=== PATIENT | female | born 1990 | race Caucasian/White ===

== ENCOUNTER 2017-04-17 18:08 | Emergency (ER) | payer OTHER ==
[2017-04-17 18:13] VITALS: RESP 18
--- NOTE | 2017-04-17 18:32 | ED ---
General Adult HPI - General Chief complaint: Shortness of Breath Stated complaint: chest,neck,side pain Time Seen by Provider: 04/17/17 18:14 Source: patient Mode of arrival: wheelchair Limitations: no limitations - History of Present Illness Initial comments: 26-year-old female patient percents for evaluation of left rib pain and upper back pain. Patient states that symptoms started last evening after she got up into her truck. She states that the pain has worsened throughout the night and today. She states that the pain is sharp and stabbing. She is currently rating at a time 10 on the pain scale. States it has now encompassed her whole left chest and her left upper back. She states that her hurts to take deep breaths. Hurts to move. She states it hurts to press on the area. She denies any falls, injury, or recent illness. She denies any fever or chills. Patient denies any recent rash, shortness breath, abdominal pain, nausea, vomiting, diarrhea, constipation, numbness, tingling, dizziness, weakness, hematuria, dysuria, urinary urgency, urinary frequency, headache, visual changes, or any other complaints. She states she has had a tubal ligation and is not . - Related Data Home Medications Medication Instructions Recorded Confirmed Naproxen 500 mg PO BID 04/17/17 04/17/17 Previous Rx's Medication Instructions Recorded Ibuprofen [Motrin] 600 mg PO Q8HR PRN #30 tab 04/17/17 Allergies Allergy/AdvReac Type Severity Reaction Status Date / Time metronidazole [From Flagyl] Allergy Rash/Hives Verified 04/17/17 18:24 Review of Systems ROS Statement: Those systems with pertinent positive or pertinent negative responses have been documented in the HPI. ROS Other: All systems not noted in ROS Statement are negative. Past Medical History Past Medical History: No Reported History Additional Past Medical History / Comment(s): heart murmur, umbilical hernia, kidney stones and degenerative disc disease. History of Any Multi-Drug Resistant Organisms: None Reported Past Surgical History: Tubal Ligation Additional Past Surgical History / Comment(s): 09/2014 Past Anesthesia/Blood Transfusion Reactions: No Reported Reaction Past Psychological History: No Psychological Hx Reported Smoking Status: Current every day smoker Past Alcohol Use History: None Reported Past Drug Use History: None Reported General Exam Limitations: no limitations General appearance: alert, anxious, in distress (Moderate), other (Well developed, well-nourished adult female appears to be in moderate distress related to pain. Vital signs upon presentation were temperature 98.1F, pulse 111, respirations 18, blood pressure 124/78, pulse ox 99% on room air.) Eye exam: Present: normal appearance, PERRL, EOMI. Absent: scleral icterus, conjunctival injection, periorbital swelling ENT exam: Present: normal exam, normal oropharynx, mucous membranes moist Neck exam: Present: normal inspection, full ROM. Absent: tenderness, meningismus, lymphadenopathy Respiratory exam: Present: normal lung sounds bilaterally, chest wall tenderness (Over the left anterior lower ribs). Absent: respiratory distress, wheezes, rales, rhonchi, stridor Cardiovascular Exam: Present: normal rhythm, tachycardia, normal heart sounds. Absent: systolic murmur, diastolic murmur, rubs, gallop, clicks GI/Abdominal exam: Present: soft, normal bowel sounds. Absent: distended, tenderness, guarding, rebound, rigid Extremities exam: Present: normal inspection, full ROM, normal capillary refill , other (Strength 5/5.). Absent: tenderness, pedal edema, joint swelling, calf tenderness Back exam: Present: normal inspection Neurological exam: Present: alert, oriented X3, CN II-XII intact Psychiatric exam: Present: normal affect, normal mood Skin exam: Present: warm, dry, intact, normal color. Absent: rash Course Vital Signs 04/17/17 04/17/17 18:11 21:13 Temperature 98.1 F 98.7 F Pulse Rate 111 H 87 Respiratory 18 18 Rate Blood Pressure 124/78 97/62 O2 Sat by Pulse 99 98 Oximetry EKG Findings - EKG Comments: EKG Findings:: EKG obtained at 1851 shows normal sinus rhythm with a ventricular rate of 83, [place] interval 136, QRS duration 84, QT 344, QTC 404. No evidence of ST elevation or depression. Medical Decision Making - Medical Decision Making 26-year-old female patient presented for evaluation of left-sided rib pain and back pain. Patient states it hurts to take a deep breath, hurts to press on the area, and hurts to move at all. Did do a chest x-ray showed no acute cardiopulmonary process. Did inform patient of incidental finding of scoliosis , she states she was not previously aware of this. Lab work was reviewed and showed no abnormalities. D-dimer was negative. Patient states she is not feeling any better. I did inform patient that she most likely has a musculoskeletal abnormality such as costochondritis causing her pain. She was discharged home with a prescription for ibuprofen and instructed to follow-up with her primary care physician for recheck in 1-2 days. Patient became very angry, was verbally abusive toward staff, and stated that she didn't want ibuprofen. She states that she would just get herself some [place]. Did instruct her to return here immediately for any new, worsening, or concerning symptoms. - Lab Data Result diagrams: 04/17/17 19:51 04/17/17 19:51 Lab Results 04/17/17 04/17/17 04/17/17 Range/Units 19:30 19:30 19:51 WBC 9.2 (3.8-10.6) k/uL RBC 4.18 (3.80-5.40) m/uL Hgb 13.2 (11.4-16.0) gm/dL Hct 39.9 (34.0-46.0) % MCV 95.4 (80.0-100.0) fL MCH 31.5 (25.0-35.0) pg MCHC 33.0 (31.0-37.0) g/dL RDW 14.3 (11.5-15.5) % Plt Count 319 (150-450) k/uL Neutrophils % 69 % Lymphocytes % 19 % Monocytes % 7 % Eosinophils % 2 % Basophils % 1 % Neutrophils # 6.4 (1.3-7.7) k/uL Lymphocytes # 1.8 (1.0-4.8) k/uL Monocytes # 0.7 (0-1.0) k/uL Eosinophils # 0.2 (0-0.7) k/uL Basophils # 0.1 (0-0.2) k/uL D-Dimer (<0.60) mg/L FEU Sodium (137-145) mmol/L Potassium (3.5-5.1) mmol/L Chloride (98-107) mmol/L Carbon Dioxide (22-30) mmol/L Anion Gap mmol/L BUN (7-17) mg/dL Creatinine (0.52-1.04) mg/dL Est GFR (MDRD) Af Amer (>60 ml/min/1.73 sqM) Est GFR (MDRD) Non-Af (>60 ml/min/1.73 sqM) Glucose (74-99) mg/dL Calcium (8.4-10.2) mg/dL Total Bilirubin (0.2-1.3) mg/dL AST (14-36) U/L ALT (9-52) U/L Alkaline Phosphatase (38-126) U/L Total Creatine Kinase (30-135) U/L CK-MB (CK-2) (0.0-2.4) ng/mL CK-MB (CK-2) Rel Index Troponin I (0.000-0.034) ng/mL Total Protein (6.3-8.2) g/dL Albumin (3.5-5.0) g/dL Urine Color Yellow Urine Appearance Clear (Clear) Urine pH 7.0 (5.0-8.0) Ur Specific [place] 1.014 (1.001-1.035) Urine Protein Negative (Negative) Urine Glucose (UA) Negative (Negative) Urine Ketones Negative (Negative) Urine Blood Negative (Negative) Urine Nitrite Negative (Negative) Urine Bilirubin Negative (Negative) Urine Urobilinogen <2.0 (<2.0) mg/dL Ur Leukocyte Esterase Negative (Negative) Urine HCG, Qual Not Detected (Not Detectd) Urine Opiates Screen Not Detected (NotDetected) Ur Oxycodone Screen Not Detected (NotDetected) Urine Methadone Screen Not Detected (NotDetected) Ur Propoxyphene Screen Not Detected (NotDetected) Ur Barbiturates Screen Not Detected (NotDetected) U Tricyclic Antidepress Not Detected (NotDetected) Ur Phencyclidine Scrn Not Detected (NotDetected) Ur Amphetamines Screen Not Detected (NotDetected) U Methamphetamines Scrn Not Detected (NotDetected) U Benzodiazepines Scrn Not Detected (NotDetected) Urine Cocaine Screen Not Detected (NotDetected) U Marijuana (THC) Screen Detected H (NotDetected) 04/17/17 04/17/17 04/17/17 Range/Units 19:51 19:51 19:51 WBC (3.8-10.6) k/uL RBC (3.80-5.40) m/uL Hgb (11.4-16.0) gm/dL Hct (34.0-46.0) % MCV (80.0-100.0) fL MCH (25.0-35.0) pg MCHC (31.0-37.0) g/dL RDW (11.5-15.5) % Plt Count (150-450) k/uL Neutrophils % % Lymphocytes % % Monocytes % % Eosinophils % % Basophils % % Neutrophils # (1.3-7.7) k/uL Lymphocytes # (1.0-4.8) k/uL Monocytes # (0-1.0) k/uL Eosinophils # (0-0.7) k/uL Basophils # (0-0.2) k/uL D-Dimer 0.20 (<0.60) mg/L FEU Sodium 138 (137-145) mmol/L Potassium 4.4 (3.5-5.1) mmol/L Chloride 109 H (98-107) mmol/L Carbon Dioxide 21 L (22-30) mmol/L Anion Gap 8 mmol/L BUN 7 (7-17) mg/dL Creatinine 0.70 (0.52-1.04) mg/dL Est GFR (MDRD) Af Amer >60 (>60 ml/min/1.73 sqM) Est GFR (MDRD) Non-Af >60 (>60 ml/min/1.73 sqM) Glucose 85 (74-99) mg/dL Calcium 9.7 (8.4-10.2) mg/dL Total Bilirubin 0.4 (0.2-1.3) mg/dL AST 17 (14-36) U/L ALT 26 (9-52) U/L Alkaline Phosphatase 70 (38-126) U/L Total Creatine Kinase 101 (30-135) U/L CK-MB (CK-2) 0.6 (0.0-2.4) ng/mL CK-MB (CK-2) Rel Index 0.6 Troponin I <0.012 (0.000-0.034) ng/mL Total Protein 6.8 (6.3-8.2) g/dL Albumin 3.9 (3.5-5.0) g/dL Urine Color Urine Appearance (Clear) Urine pH (5.0-8.0) Ur Specific [place] (1.001-1.035) Urine Protein (Negative) Urine Glucose (UA) (Negative) Urine Ketones (Negative) Urine Blood (Negative) Urine Nitrite (Negative) Urine Bilirubin (Negative) Urine Urobilinogen (<2.0) mg/dL Ur Leukocyte Esterase (Negative) Urine HCG, Qual (Not Detectd) Urine Opiates Screen (NotDetected) Ur Oxycodone Screen (NotDetected) Urine Methadone Screen (NotDetected) Ur Propoxyphene Screen (NotDetected) Ur Barbiturates Screen (NotDetected) U Tricyclic Antidepress (NotDetected) Ur Phencyclidine Scrn (NotDetected) Ur Amphetamines Screen (NotDetected) U Methamphetamines Scrn (NotDetected) U Benzodiazepines Scrn (NotDetected) Urine Cocaine Screen (NotDetected) U Marijuana (THC) Screen (NotDetected) - Radiology Data Radiology results: report reviewed, image reviewed Two-view x-ray of the chest shows a heart and mediastinum are normal. Lungs are clear. There is thoracic dextroscoliosis. There is no sign of pleural effusion. Impression by Dr. Perez shows no active cardiopulmonary disease. No change. Disposition Clinical Impression: Costochondritis, Scoliosis Disposition: HOME SELF-CARE Condition: Good Instructions: Costochondritis (ED) Additional Instructions: Take pain medication as directed. Apply warm compresses to the left ribs. Follow-up through primary care physician for recheck in 1-2 days. Return here immediately for any new, worsening, or concerning symptoms. Prescriptions: Ibuprofen [Motrin] 600 mg PO Q8HR PRN #30 tab PRN Reason: Pain Referrals: Nancy Cote MD [Primary Care Provider] - 1-2 days
[2017-04-17] MEDS ORDERED: KETOROLAC 60 MG/2 ML VIAL IM STA (18:49)
--- NOTE | 2017-04-17 19:08 | XR ---
EXAMINATION TYPE: XR chest 2V DATE OF EXAM: 04/17/2017 COMPARISON: 11/08/2010 HISTORY: Back pain TECHNIQUE: Frontal and lateral views of the chest are obtained. FINDINGS: Heart and mediastinum are normal. Lungs are clear. There is thoracic dextroscoliosis. Ther e is no sign of pleural effusion. IMPRESSION: No active cardiopulmonary disease. No change.
[2017-04-17 19:41] LABS: Appearance,Urine Clear (Clear); Bilirubin,Urine Negative (Negative); Glucose,Urine (UA) Negative (Negative); Ketones,Urine Negative (Negative); Leukocyte Esterase,Urine Negative (Negative); Nitrite,Urine Negative (Negative); Protein,Urine Negative (Negative); Specific Gravity,Urine 1.014 (1.001-1.035); UA Billing (MACRO vs. MICRO) CHEM; Urobilinogen,Urine <2.0 mg/dL (<2.0)
[2017-04-17 20:11] LABS: Basophils # (A) 0.1 k/uL (0-0.2); Basophils % (A) 1 %; CH 30.3; CHCM 31.9; Eosinophils # (A) 0.2 k/uL (0-0.7); Eosinophils % (A) 2 %; HCT 39.9 % (34.0-46.0); HDW 2.07; HGB 13.2 gm/dL (11.4-16.0); Luc # (Auto) 0.19; Luc % (Auto) 2; Lymphocytes # (A) 1.8 k/uL (1.0-4.8); Lymphocytes % (A) 19 %; MCH 31.5 pg (25.0-35.0); MCV 95.4 fL (80.0-100.0); Mean Platelet Volume 6.8; Monocytes # (A) 0.7 k/uL (0-1.0); Monocytes % (A) 7 %; Neutrophils # (A) 6.4 k/uL (1.3-7.7); Neutrophils % (A) 69 %; RBC 4.18 m/uL (3.80-5.40); RDW 14.3 % (11.5-15.5); WBC 9.2 k/uL (3.8-10.6); WBC (Perox) 9.44
[2017-04-17 20:26] LABS: ALT 26 U/L (9-52); AST 17 U/L (14-36); Alkaline Phosphatase 70 U/L (38-126); Anion Gap 8 mmol/L; Blood Urea Nitrogen 7 mg/dL (7-17); Calcium 9.7 mg/dL (8.4-10.2); Carbon Dioxide 21 mmol/L (22-30); Chloride 109 mmol/L (98-107); Glucose 85 mg/dL (74-99); Non-African American GFR(MDRD) >60 (>60 ml/min/1.73 sqM); Potassium 4.4 mmol/L (3.5-5.1); Sodium 138 mmol/L (137-145); Total Bilirubin 0.4 mg/dL (0.2-1.3); Total Protein 6.8 g/dL (6.3-8.2)
[2017-04-17 20:41] LABS: Creatine Kinase 101 U/L (30-135)
[2017-04-17 20:53] LABS: Creatine Kinase MB 0.6 ng/mL (0.0-2.4); Troponin I <0.012 ng/mL (0.000-0.034)
[2017-04-17 21:14] VITALS: BP 97/62; PULSE 87; TEMP 98.7
== END 2017-04-17 21:14 | disposition home or self-care (01) ==
LOC: EC 18:08
DX: M94.0 Chondrocostal junction syndrome [Tietze] (principal); M41.9 Scoliosis, unspecified; R06.02 Shortness of breath; F17.200 Nicotine dependence, unspecified, uncomplicated; Z79.1 Long term (current) use of non-steroidal anti-inflammatories (NSAID); Z88.1 Allergy status to other antibiotic agents
CPT/HCPCS: 36415; 93005; 85379; 80053; 82550; 82553; 84484; 85025; 81003; 81025; 80306; 71020; 99285; 96372; J1885

== ENCOUNTER → 2017-10-07 | Outpatient (CLI) | payer OTHER ==
--- NOTE | 2017-10-07 10:15 | XR ---
EXAM TYPE: LUMBAR SPINE X RAY SERIES COMPARISON: NONE HISTORY: Lower back pain TECHNIQUE: 4 views are submitted. FINDINGS: Alignment is anatomic. The pedicles are intact. The transverse processes are intact. There is no s pondylolisthesis. IMPRESSION: 1. No acute process. If symptoms persist consider MRI.
== END | disposition home or self-care (01) ==
LOC: RADXRMAIN 09:58
PROVIDERS: ATTEND Internal Medicine
DX: M54.5 Low back pain (principal)
CPT/HCPCS: 72100

== ENCOUNTER 2017-11-04 08:43 | Day surgery (SDC) | payer OTHER ==
[2017-11-03 11:59] VITALS: BMI 17.3
--- NOTE | 2017-11-03 17:47 | P.GSHP ---
History of Present Illness H&P Date: 11/04/17 CHIEF COMPLAINT: ventral hernia. HISTORY OF PRESENT ILLNESS: The patient is a 27-year-old female who presents with a history of swelling along the umbilicus. Findings were consistent with ventral hernia. Now she presents for further evaluation and management. PAST MEDICAL HISTORY: Please see list. PAST SURGICAL HISTORY: Please see list. MEDICATIONS: Please see list. ALLERGIES: Please see list. SOCIAL HISTORY: No illicit drug use FAMILY HISTORY: No reports of Crohn disease or ulcerative colitis. REVIEW OF ORGAN SYSTEMS: CONSTITUTIONAL: No reports of fevers or chills. GI: Denies any blood in stools or constipation. PHYSICAL EXAM: VITAL SIGNS: Stable GENERAL: Well-developed pleasant female in no acute distress. HEENT: No scleral icterus. Extraocular movements grossly intact. Moist buccal mucosa. NECK: Supple without lymphadenopathy. CHEST: Unlabored respirations. Equal bilateral excursions. CARDIOVASCULAR: Regular rate and rhythm. Distal 2+ pulses. ABDOMEN: Soft, nondistended. Tender along the epigastrium. MUSCULOSKELETAL: No clubbing, cyanosis, or edema. ASSESSMENT: 1. Ventral hernia. 2. Tobacco use. PLAN: 1. Recommend proceeding with robotic ventral hernia repair with mesh. 2. Benefits and risks of surgical intervention was discussed including possibility of open technique. 3. DVT prophylaxis. 4. Antibiotic prophylaxis. 5. Tobacco cessation reiterated. Past Medical History Past Medical History: Osteoarthritis (OA) Additional Past Medical History / Comment(s): heart murmur, umbilical hernia, kidney stones degenerative disc disease,abdominal hernia,irregular blood sugars History of Any Multi-Drug Resistant Organisms: None Reported Past Surgical History: Tubal Ligation Additional Past Surgical History / Comment(s): 09/2014 Past Anesthesia/Blood Transfusion Reactions: No Reported Reaction Additional Past Anesthesia/Blood Transfusion Reaction / Comment(s): mother has hx malignant hyperthermia-. pt states "no problems with prior anesthesia". no hx blood transfusion Smoking Status: Current every day smoker - Past Family History Mother Family Medical History: No Reported History Father Family Medical History: Myocardial Infarction ([place]) Medications and Allergies Home Medications Medication Instructions Recorded Confirmed Type Ibuprofen [Motrin] 600 mg PO Q8HR PRN #30 tab 04/17/17 11/03/17 Rx Naproxen 500 mg PO BID 04/17/17 11/03/17 History Inulin/Chromium Picolinate [Fiber 1 each PO DAILY 11/03/17 11/03/17 History Gummies Chew] Allergies Allergy/AdvReac Type Severity Reaction Status Date / Time metronidazole [From Flagyl] Allergy Rash/Hives Verified 11/03/17 11:44
[~2017-11-04 08:43] MED LIST: DEXAMETHASONE SOD PHOSPHATE 10 MG/ML 1 ML VIAL IV ONE; HEPARIN SODIUM,PORCINE 5,000 UNIT/ML 1 ML VIAL SQ ONE; LACTATED RINGERS 1,000 ML IV SCH; MIDAZOLAM 2 MG/2 ML VIAL IV PRN; ONDANSETRON 4 MG/2 ML VIAL IVP ONE; SCOPOLAMINE 1.5MG/72HR PATCH TRANSDERM ONE; ceFAZolin IN SWFI 2 GM/20 ML SYRINGE IVP ONE
[2017-11-04] MEDS ORDERED: LIDOCAINE 1% 20 ML VIAL (10MG/ML) FOR IV START INTRADERMA ONE (09:27)
[2017-11-04] MEDS ORDERED: MORPHINE SULFATE 10 MG/ML SYRINGE ONE (10:33)
[2017-11-04] MEDS ORDERED: ROCURONIUM BROMIDE 10 MG/ML 10 ML VIAL IV ONE (10:33)
[2017-11-04] MEDS ORDERED: PROPOFOL 10 MG/ML 20 ML VIAL IV ONE (10:33)
[2017-11-04] MEDS ORDERED: MIDAZOLAM 2 MG/2 ML VIAL ONE (10:33)
[2017-11-04] MEDS ORDERED: GLYCOPYRROLATE 0.2 MG/ML 2 ML VIAL ONE (10:33)
[2017-11-04] MEDS ORDERED: LIDOCAINE 1% INJ 10MG/ML (20 ML MDV) ONE (10:33)
[2017-11-04] MEDS ORDERED: fentaNYL (PF) 50 MCG/ML 2 ML AMP ONE (10:33)
[2017-11-04] MEDS ORDERED: NEOSTIGMINE 1 MG/ML 10 ML VIAL ONE (10:33)
[2017-11-04] MEDS ORDERED: BUPIVACAINE (PF) 0.25% 30 ML VIAL SQ ONE (11:12)
[2017-11-04] MEDS ORDERED: LACTATED RINGERS 1,000 ML IV ONE ×2 (11:50→14:16)
--- NOTE | 2017-11-04 12:23 | P.OP ---
Date of Procedure: 11/04/17 Description of Procedure: SURGEON: INGRID FARFAN MD IT ANALYST: 1. BLAINE VALENTINO PREOPERATIVE DIAGNOSES: 1. Incarcerated ventral hernia, epigastrium 2. History of tobacco abuse 3. Heart murmur 4. Family history of malignant hyperthermia 5. Underwent, BMI 17.4 POSTOPERATIVE DIAGNOSES: 1. Incarcerated ventral hernia, epigastrium 2. History of tobacco abuse 3. Heart murmur 4. Family history of malignant hyperthermia 5. Underwent, BMI 17.4 6. Incarcerated ventral hernia, epigastrium, 4 x 3 cm OPERATION: 1. Robotic-assisted da Parmjit Xi laparoscopic repair of initial incarcerated ventral hernia 4 x 3 cm without mesh ANESTHESIA: General with local ESTIMATED BLOOD LOSS: 5 mL. SPECIMENS: Incarcerated ventral hernia sac COMPLICATIONS: None. INDICATIONS: The patient is a 27-year-old female who presents with pain and swelling along the epigastrium. Surgical intervention with laparoscopic versus robotic and open techniques were reviewed. Placement of mesh was also reviewed. Benefits and risks were thoroughly described. Informed consent was obtained. DESCRIPTION OF PROCEDURE: The patient was brought into the operating room and laid in supine position. After general induction, the abdomen had been prepped and draped in standard sterile fashion. Ioban draping was also placed. Prior to incision, a timeout protocol was confirmed with surgical team regarding the patient's name including procedures to be performed. The robot was primed prior to the procedure. A field block using local anesthetic was placed along hernia site including the proposed port sites. Initial incision was made with an #11 blade along the left upper quadrant. A 0 degree 5 mm laparoscopic trocar entry was performed. Diagnostic laparoscopy demonstrated an incarcerated ventral hernia of the epigastrium was identified. A 8 mm trocar was placed along the epigastrium. An 8 mm port was placed along the right upper quadrant under direct localization. The 5-mm port was exchanged for an 8 mm robotic port. Placements of the ports were 10 cm from the target anatomy and approximately 8 cm apart. The [employer] Xi robot was previously primed, prepped and draped then docked along the left side of the patient. I then sat at the robot Da Parmjit Xi console where working arms of the robot including Bovie cautery connected to robotic scissors, vessel sealer, needle dinkey driver, and graspers placed by the autopsy assistant. The incarcerated contents was reduced as the peritoneal fat was cleaned from the abdominal wall. Next, hemostasis was checked with cautery. The hernia defect of 4-cm x 3-cm was oversewn using 2-0 VLOC using imbrication x 3. A final endoscopic imaging was obtained. All instruments and pneumoperitoneum were evacuated from the abdominal cavity. The da Parmjit Xi robot was undocked from the patient. I re-scrubbed into the case for closure of incisions. The incisions were reapproximated using 4-0 Monocryl in an interrupted subcuticular fashion. Liquid glue was applied to the skin after cleansing the skin. At the end of the procedure, needle, sponge, and instrument count had been verified correct by surgical garment inspector. The patient was taken to the postanesthesia care unit in stable condition. An abdominal binder was placed. FINDINGS: 1. Initial ventral incarcerated hernia of the lower abdomen, 4 x 3 cm Plan - Discharge Summary Discharge Rx Participant: No New Discharge Prescriptions: No Action Naproxen 500 mg PO BID Ibuprofen [Motrin] 600 mg PO Q8HR PRN #30 tab PRN Reason: Pain Inulin/Chromium Picolinate [Fiber Gummies Chew] 1 each PO DAILY Discharge Medication List Ibuprofen [Motrin] 600 mg PO Q8HR PRN #30 tab 04/17/17 [Rx] Naproxen 500 mg PO BID 04/17/17 [History] Inulin/Chromium Picolinate [Fiber Gummies Chew] 1 each PO DAILY 11/03/17 [ History]
[2017-11-04] MEDS: fentaNYL (PF) 50 MCG/ML 2 ML AMP IV PRN ×2 (12:27→12:39)
[2017-11-04 12:34] VITALS: TEMP 98
[2017-11-04] MEDS: MEPERIDINE 50 MG/ML SYRINGE IVP ONE ×2 (12:47→12:57)
[2017-11-04] MEDS ORDERED: MIDAZOLAM 2 MG/2 ML VIAL IVP ONE (13:03)
[2017-11-04] MEDS ORDERED: HYDROcodone/APAP 10-325MG 1 EACH TAB PO ONE ×2 (13:53→17:06)
[2017-11-04] MEDS ORDERED: HYDROcodone/APAP 5-325MG 1 EACH TAB PO ONE (14:01)
[2017-11-04] MEDS ORDERED: LORazepam 2 MG/ML INJ IV ONE ×2 (14:02→14:16)
[2017-11-04] MEDS ORDERED: fentaNYL (PF) 50 MCG/ML 2 ML AMP IVP ONE (15:20)
[2017-11-04 15:36] VITALS: RESP 18
--- NOTE | 2017-11-04 15:50 | P.ONQ ---
Anesthesiology Proc Note - PNB - Peripheral Nerve Block Performed Left Transversus Abdominis Single Time Out Performed: Yes Procedure Start Time: 14:59 Procedure Stop Time: 15:10 Indication: Acute Post-Operative Pain, Requested by physician Specifically requested for management of pain by DrMahogany: Suellen Pritchett Sedation Type: Sedate with meaningful contact maintained Preparation: Sterile Prep Position: Supine Needle Size: 50mm (2") (PUJUNK) Needle Gauge: 21 Technique: Ultrasound Injectate: 0.5% Ropivacaine (see comment for volume) (10 ml plus Bupivacaine 0.5 % withep 1/200k 10 ml) Blood Aspirated: No Pain Paresthesia on Injection Noted: No Resistance on Injection: Normal Events: Uneventful and Well Tolerated
--- NOTE | 2017-11-04 15:53 | P.ONQ ---
Anesthesiology Proc Note - PNB - Peripheral Nerve Block Performed Right Transversus Abdominis Single Time Out Performed: Yes Procedure Start Time: 15:12 Procedure Stop Time: 15:20 Indication: Acute Post-Operative Pain Specifically requested for management of pain by Dr.: Suellen Pritchett Sedation Type: Sedate with meaningful contact maintained Preparation: Sterile Prep Position: Supine Needle Size: 50mm (2") (PUJUNK) Needle Gauge: 20 Technique: Ultrasound Injectate: 0.5% Ropivacaine (see comment for volume) (10 ml plus Bupivacaine 0.5 % with epi 1/200 k 10 ml) Blood Aspirated: No Pain Paresthesia on Injection Noted: No Resistance on Injection: Normal Events: Uneventful and Well Tolerated
[2017-11-04 16:28] VITALS: BP 106/65; PULSE 83
[2017-11-04] MEDS ORDERED: KETOROLAC 30 MG/ML 1 ML VIAL IVP STA (16:48)
[2017-11-04] MEDS ORDERED: KETOROLAC 30 MG/ML 1 ML VIAL IVP ONE (16:52)
== END 2017-11-04 17:49 | disposition home or self-care (01) ==
LOC: OR 08:43
PROVIDERS: ATTEND Surgery Plastic and Reconstructive Surgery
DX: K43.6 Other and unspecified ventral hernia with obstruction, without gangrene (principal); R01.1 Cardiac murmur, unspecified; F17.200 Nicotine dependence, unspecified, uncomplicated; Z68.1 Body mass index [BMI] 19.9 or less, adult; Z84.89 Family history of other specified conditions; Z79.1 Long term (current) use of non-steroidal anti-inflammatories (NSAID); Z88.1 Allergy status to other antibiotic agents
CPT/HCPCS: 49653; 64488; S2900; 81025; 84703; 86850; 86900; 86901; 88302

== ENCOUNTER 2017-11-06 13:54 | Emergency (ER) | payer OTHER ==
[2017-11-06] MEDS ORDERED: SODIUM CHLORIDE 0.9% 1,000 ML IV STA (14:40)
[2017-11-06] MEDS ORDERED: RX INFO: IV CONTRAST WAS GIVEN 1 EACH MISC MISCELLANE PRN (14:52)
[2017-11-06] MEDS ORDERED: MORPHINE SULFATE 2 MG/ML SYRINGE IVP ONE (14:52)
[2017-11-06] MEDS ORDERED: ONDANSETRON 4 MG/2 ML VIAL IVP STA (14:52)
[2017-11-06] MEDS ORDERED: MORPHINE SULFATE 4MG/4ML SYRG IVP STA ×2 (14:52→16:17)
[2017-11-06] MEDS ORDERED: MORPHINE SULFATE 4MG/4ML SYRG IVP ONE (14:52)
[2017-11-06] MEDS ORDERED: MORPHINE SULFATE 4MG/4ML SYRG ONE (14:55)
[2017-11-06 15:00] LABS: Basophils % (A) 0 %; Eosinophils # (A) 0.1 k/uL (0-0.7); Eosinophils % (A) 3 %; HCT 39.8 % (34.0-46.0); HGB 12.9 gm/dL (11.4-16.0); Lymphocytes # (A) 2.1 k/uL (1.0-4.8); Lymphocytes % (A) 40 %; MCH 30.3 pg (25.0-35.0); MCHC 32.4 g/dL (31.0-37.0); MCV 93.4 fL (80.0-100.0); Mean Platelet Volume 7.8; Monocytes # (A) 0.4 k/uL (0-1.0); Monocytes % (A) 7 %; Neutrophils # (A) 2.5 k/uL (1.3-7.7); Neutrophils % (A) 48 %; Platelet Count 195 k/uL (150-450); RBC 4.26 m/uL (3.80-5.40); RDW 13.2 % (11.5-15.5); WBC 5.2 k/uL (3.8-10.6)
[2017-11-06 15:07] LABS: Appearance,Urine Clear (Clear); Bilirubin,Urine Negative (Negative); Blood,Urine Moderate (Negative); Color,Urine Light Yellow; Glucose,Urine (UA) Negative (Negative); Ketones,Urine Negative (Negative); Leukocyte Esterase,Urine Negative (Negative); Mucus,Urine Rare /hpf; Nitrite,Urine Negative (Negative); Protein,Urine Negative (Negative); RBC,Urine 1 /hpf (0-5); Specific Gravity,Urine 1.006 (1.001-1.035); Squamous Epithelial Cell,Urine 2 /hpf (0-4); Urobilinogen,Urine <2.0 mg/dL (<2.0); WBC,Urine 1 /hpf (0-5)
[2017-11-06 15:09] LABS: ALT 27 U/L (9-52); AST 29 U/L (14-36); Albumin 4.2 g/dL (3.5-5.0); Alkaline Phosphatase 64 U/L (38-126); Amylase 49 U/L (30-110); Anion Gap 12 mmol/L; Blood Urea Nitrogen 7 mg/dL (7-17); Calcium 9.5 mg/dL (8.4-10.2); Carbon Dioxide 25 mmol/L (22-30); Chloride 106 mmol/L (98-107); Glucose 82 mg/dL (74-99); Lipase 86 U/L (23-300); Potassium 3.5 mmol/L (3.5-5.1); Sodium 143 mmol/L (137-145); Total Bilirubin 0.3 mg/dL (0.2-1.3); Total Protein 7.1 g/dL (6.3-8.2)
--- NOTE | 2017-11-06 15:21 | XR ---
EXAMINATION TYPE: XR KUB DATE OF EXAM: 11/06/2017 CLINICAL DATA: 27-year-old female with abdominal pain, H COMPARISON: 08/19/2015 FINDINGS: Lung bases are clear. No evidence for free intraperitoneal air. No dilated small bowel or air-fluid levels. Scattered air and stool seen throughout the colon extendi ng distally into the rectum. Gassy colon with mild stool burden. No suspicious calcifications identified. IMPRESSION: 1. Gassy colon with mild stool burden. 2.No evidence of bowel obstruction or free intraperitoneal air.
--- NOTE | 2017-11-06 15:47 | ED ---
Abdominal Pain HPI - General Chief Complaint: Abdominal Pain Stated Complaint: post op abd pain - hernia surgery Time Seen by Provider: 11/06/17 14:40 Source: patient, RN notes reviewed Mode of arrival: wheelchair Limitations: no limitations - History of Present Illness Initial Comments: This is 27-year-old female presents emergency department to complaint of abdominal pain. Patient states that she is on day 2. Ventral hernia repair by Dr. Pritchett. Patient states that she was doing well until early this morning which she was woken up by abdominal pain. She states it is sharp intense abdominal pain meds not localized. She states as very dislocations. She states that she has not had a bowel movement since her surgery she states been trying to go but can't. Patient states she did take her pain medication twice with no relief she attempted to call her doctor multiple times which had no phone call back. Patient denies any vomiting. There appears or chills. No dysuria hematuria. - Related Data Home Medications Medication Instructions Recorded Confirmed Naproxen 500 mg PO BID 04/17/17 11/04/17 Inulin/Chromium Picolinate [Fiber 1 each PO DAILY 11/03/17 11/04/17 Gummies Chew] Previous Rx's Medication Instructions Recorded Ibuprofen [Motrin] 600 mg PO Q8HR PRN #30 tab 04/17/17 HYDROcodone/APAP 7.5-325MG [[place] 1 each PO Q4H PRN #30 tab 11/04/17 7.5-325] Bisacodyl [Dulcolax] 5 mg PO DAILY #20 tablet. 11/06/17 Hydrocodone/Acetaminophen [[place] 1 tab PO Q6HR PRN #15 tab 11/06/17 5-325] Allergies Allergy/AdvReac Type Severity Reaction Status Date / Time metronidazole [From Flagyl] Allergy Rash/Hives Verified 11/06/17 14:03 Review of Systems ROS Statement: Those systems with pertinent positive or pertinent negative responses have been documented in the HPI. ROS Other: All systems not noted in ROS Statement are negative. Past Medical History Past Medical History: No Reported History Additional Past Medical History / Comment(s): heart murmur, umbilical hernia, kidney stones and degenerative disc disease. History of Any Multi-Drug Resistant Organisms: None Reported Past Surgical History: Hernia Repair, Tubal Ligation Additional Past Surgical History / Comment(s): 09/2014 Past Anesthesia/Blood Transfusion Reactions: No Reported Reaction Past Psychological History: No Psychological Hx Reported Smoking Status: Current every day smoker Past Alcohol Use History: None Reported Past Drug Use History: None Reported General Exam Limitations: no limitations General appearance: alert, in no apparent distress Head exam: Present: atraumatic, normocephalic, normal inspection Respiratory exam: Present: normal lung sounds bilaterally. Absent: respiratory distress, wheezes, rales, rhonchi, stridor Cardiovascular Exam: Present: regular rate, normal rhythm, normal heart sounds. Absent: systolic murmur, diastolic murmur, rubs, gallop, clicks GI/Abdominal exam: Present: soft, tenderness (Diffuse moderate tenderness), normal bowel sounds, other (3 incisions noted that her close no erythema no drainage). Absent: distended, guarding, rebound, rigid Course Vital Signs 11/06/17 14:01 Temperature 98.3 F Pulse Rate 78 Respiratory 20 Rate Blood Pressure 125/65 O2 Sat by Pulse 100 Oximetry Medical Decision Making - Medical Decision Making 27-year-old female presents from for abdominal pain.. Patient CT shows some free air which is consistent with her surgery. Patient's laboratory unremarkable. Patient's pain most likely related to postop pain. Patient states discussed with on-call surgeon for Dr. Ginny Cook. He advises bowel regimen, pain control. Patient will follow-up tomorrow for recheck. - Lab Data Result diagrams: 11/06/17 14:42 11/06/17 14:42 Lab Results 11/06/17 11/06/17 11/06/17 Range/Units 14:42 14:42 14:42 WBC 5.2 (3.8-10.6) k/uL RBC 4.26 (3.80-5.40) m/uL Hgb 12.9 (11.4-16.0) gm/dL Hct 39.8 (34.0-46.0) % MCV 93.4 (80.0-100.0) fL MCH 30.3 (25.0-35.0) pg MCHC 32.4 (31.0-37.0) g/dL RDW 13.2 (11.5-15.5) % Plt Count 195 (150-450) k/uL Neutrophils % 48 % Lymphocytes % 40 % Monocytes % 7 % Eosinophils % 3 % Basophils % 0 % Neutrophils # 2.5 (1.3-7.7) k/uL Lymphocytes # 2.1 (1.0-4.8) k/uL Monocytes # 0.4 (0-1.0) k/uL Eosinophils # 0.1 (0-0.7) k/uL Basophils # 0.0 (0-0.2) k/uL Sodium 143 (137-145) mmol/L Potassium 3.5 (3.5-5.1) mmol/L Chloride 106 (98-107) mmol/L Carbon Dioxide 25 (22-30) mmol/L Anion Gap 12 mmol/L BUN 7 (7-17) mg/dL Creatinine 0.67 (0.52-1.04) mg/dL Est GFR (CKD-EPI)AfAm >90 (>60 ml/min/1.73 sqM) Est GFR (CKD-EPI)NonAf >90 (>60 ml/min/1.73 sqM) Glucose 82 (74-99) mg/dL Plasma Lactic Acid Gigi 0.8 (0.7-2.0) mmol/L Calcium 9.5 (8.4-10.2) mg/dL Total Bilirubin 0.3 (0.2-1.3) mg/dL AST 29 (14-36) U/L ALT 27 (9-52) U/L Alkaline Phosphatase 64 (38-126) U/L Total Protein 7.1 (6.3-8.2) g/dL Albumin 4.2 (3.5-5.0) g/dL Amylase 49 (30-110) U/L Lipase 86 (23-300) U/L Urine Color Urine Appearance (Clear) Urine pH (5.0-8.0) Ur Specific [place] (1.001-1.035) Urine Protein (Negative) Urine Glucose (UA) (Negative) Urine Ketones (Negative) Urine Blood (Negative) Urine Nitrite (Negative) Urine Bilirubin (Negative) Urine Urobilinogen (<2.0) mg/dL Ur Leukocyte Esterase (Negative) Urine RBC (0-5) /hpf Urine WBC (0-5) /hpf Ur Squamous Epith Cells (0-4) /hpf Urine Mucus (None) /hpf 11/06/17 Range/Units 14:42 WBC (3.8-10.6) k/uL RBC (3.80-5.40) m/uL Hgb (11.4-16.0) gm/dL Hct (34.0-46.0) % MCV (80.0-100.0) fL MCH (25.0-35.0) pg MCHC (31.0-37.0) g/dL RDW (11.5-15.5) % Plt Count (150-450) k/uL Neutrophils % % Lymphocytes % % Monocytes % % Eosinophils % % Basophils % % Neutrophils # (1.3-7.7) k/uL Lymphocytes # (1.0-4.8) k/uL Monocytes # (0-1.0) k/uL Eosinophils # (0-0.7) k/uL Basophils # (0-0.2) k/uL Sodium (137-145) mmol/L Potassium (3.5-5.1) mmol/L Chloride (98-107) mmol/L Carbon Dioxide (22-30) mmol/L Anion Gap mmol/L BUN (7-17) mg/dL Creatinine (0.52-1.04) mg/dL Est GFR (CKD-EPI)AfAm (>60 ml/min/1.73 sqM) Est GFR (CKD-EPI)NonAf (>60 ml/min/1.73 sqM) Glucose (74-99) mg/dL Plasma Lactic Acid Gigi (0.7-2.0) mmol/L Calcium (8.4-10.2) mg/dL Total Bilirubin (0.2-1.3) mg/dL AST (14-36) U/L ALT (9-52) U/L Alkaline Phosphatase (38-126) U/L Total Protein (6.3-8.2) g/dL Albumin (3.5-5.0) g/dL Amylase (30-110) U/L Lipase (23-300) U/L Urine Color Light Yellow Urine Appearance Clear (Clear) Urine pH 6.0 (5.0-8.0) Ur Specific [place] 1.006 (1.001-1.035) Urine Protein Negative (Negative) Urine Glucose (UA) Negative (Negative) Urine Ketones Negative (Negative) Urine Blood Moderate H (Negative) Urine Nitrite Negative (Negative) Urine Bilirubin Negative (Negative) Urine Urobilinogen <2.0 (<2.0) mg/dL Ur Leukocyte Esterase Negative (Negative) Urine RBC 1 (0-5) /hpf Urine WBC 1 (0-5) /hpf Ur Squamous Epith Cells 2 (0-4) /hpf Urine Mucus Rare H (None) /hpf Disposition Clinical Impression: Status post hernia repair, Abdominal pain, Constipation Disposition: HOME SELF-CARE Condition: Stable Instructions: Abdominal Pain (ED) Additional Instructions: Please return to the Emergency Department if symptoms worsen or any other concerns. Prescriptions: Bisacodyl [Dulcolax] 5 mg PO DAILY #20 tablet. Hydrocodone/Acetaminophen [[place] 5-325] 1 tab PO Q6HR PRN #15 tab PRN Reason: Pain Referrals: Nancy Cote MD [Primary Care Provider] - 1-2 days Suellen Pritchett MD [STAFF PHYSICIAN] - 1-2 days Time of Disposition: 16:14
--- NOTE | 2017-11-06 15:54 | CT ---
EXAMINATION TYPE: CT abdomen pelvis w con DATE OF EXAM: 11/06/2017 COMPARISON: 11/03/2010 HISTORY: 27-year-old female Mid to RLQ pain. Post OP Umbilical hernia repair 11/04/17 TECHNIQUE: Contiguous axial scanning of the abdomen and pelvis following administration of 100 ml Omn ipaque 300 IV contrast. Delayed images through the kidneys and coronal/sagittal reconstructions perf ormed. CT DLP: 352.5 mGycm Automated exposure control for dose reduction was used. FINDINGS: Heart is normal size without pericardial effusion. There is combination of subcutaneous air, scattered air along the abdominal wall soft tissues, and at the patient's site of reported umbilical hernia repair. Mild fat stranding in this region suggests s ome inflammation. Tiny residual defect with some traversing air difficult to entirely exclude, refer to sagittal images 49 through 51 and axial image 42. Trace free intraperitoneal air and trace abdominal ascites but with more moderate pelvic ascites. Some heterogeneity to the enhancement along the right hepatic dome may be secondary to the arterial p hase imaging. Portal venous system is patent. No biliary ductal dilatation. Gallbladder, adrenal glands, right kidney, spleen, and pancreas show no gross abnormality. Couple tiny cortical defects lower pole left kidney were present previously and suggests sequela of p rior infection or vascular insult. No dilated small bowel. There is moderate stool burden. No mesenteric or retroperitoneal lymphadenopa thy clearly identified. A short portion of what appears to be the appendix is grossly unremarkable. The appendix is not seen in its entirety. Bladder is urine distended. Very bulky and heterogeneous enhancement to the uterus. Ovaries are not c learly delineated. Again, moderate pelvic free fluid is present. Bones: No osseous destructive process. IMPRESSION: 1. COMBINATION OF MILD SCATTERED SUBCUTANEOUS AIR, AIR ALONG THE ANTERIOR ABDOMINAL WALL SOFT TISSUES , AT THE PATIENT'S SITE OF REPORTED UMBILICAL HERNIA REPAIR, AND UNDERLYING MILD FREE INTRAPERITONEAL AIR. CORRELATE WITH SURGICAL TECHNIQUE AND HISTORY TO DETERMINE IF THIS IS AN APPROPRIATE POSTOPERAT YE APPEARANCE. 2. SOME MILD INFLAMMATION AT THE UMBILICAL HERNIA REPAIR SITE COULD BE POSTOPERATIVE INFLAMMATION OR CELLULITIS. 3. MILD ABDOMINAL ASCITES AND MODERATE PELVIC FREE FLUID COULD ALSO BE REACTIVE TO THE SURGERY. CLINI KRYSTAL CORRELATE. FOLLOW-UP INDICATED. 4. VERY HETEROGENEOUSLY ENHANCING AND BULKY APPEARANCE TO THE UTERUS. FINDINGS MAY REFLECT UNDERLYING FIBROID CHANGE OR ADENOMYOSIS.
[2017-11-06] MEDS ORDERED: KETOROLAC 30 MG/ML 1 ML VIAL IVP STA (16:17)
[2017-11-06 16:33] VITALS: BP 118/61; PULSE 65; RESP 18; TEMP 97.9
== END 2017-11-06 16:42 | disposition home or self-care (01) ==
LOC: EC 13:54
DX: K59.00 Constipation, unspecified (principal); R10.84 Generalized abdominal pain; F17.200 Nicotine dependence, unspecified, uncomplicated; Z79.1 Long term (current) use of non-steroidal anti-inflammatories (NSAID); Z79.899 Other long term (current) drug therapy; Z88.1 Allergy status to other antibiotic agents; Z98.890 Other specified postprocedural states; Z53.8 Procedure and treatment not carried out for other reasons
CPT/HCPCS: 36415; 80053; 82150; 83605; 83690; 85025; 81001; 74018; 74177; 99284; 96374; 96375 ×2; 96376; 96361 ×2; J2405; J1885; Q9967; J2270

== ENCOUNTER → 2020-08-06 | Outpatient (CLI) | payer OTHER ==
--- NOTE | 2020-08-06 15:33 | XR ---
EXAMINATION TYPE: XR sacrum coccyx DATE OF EXAM: 08/06/2020 COMPARISON: NONE HISTORY: 29-year-old female tail bone pain after fall TECHNIQUE: 3 views FINDINGS: SI joints appear symmetric and intact. Small delineation to the arcuate lines of the sacrum. Partiall y visualized umbilical or dilatation. There is anterior angulation at the distal coccygeal segment. IMPRESSION: Anterior angulation of the distal coccygeal segment compatible with tailbone fracture given patient's recent injury and localized pain.
== END | disposition home or self-care (01) ==
LOC: RADXRYALE 14:53
PROVIDERS: ATTEND Internal Medicine
DX: M43.8X8 Other specified deforming dorsopathies, sacral and sacrococcygeal region (principal)
CPT/HCPCS: 72220

== ENCOUNTER 2024-06-17 02:54 | Emergency (ER) | payer OTHER ==
[2024-06-17 03:07] VITALS: RESP 18; TEMP 98.1
--- NOTE | 2024-06-17 03:13 | ED ---
General Adult HPI - General Chief complaint: Neck Pain/Injury Stated complaint: pain Time Seen by Provider: 06/17/24 03:13 Source: patient Mode of arrival: ambulatory Limitations: no limitations - History of Present Illness Initial comments: Pricila is a 33-year-old female with history of scoliosis chronic neck pain who presents the ER today for evaluation of persistent pain in her neck rating to her right shoulder. Patient reports pain has been progressively worsening she has had a recent MRI at her neurologist office and followed with Dr. Samano who was able to schedule her for surgery on June 26 patient states that despite following with neurology and neurosurgery she has not prescribed any pain medications or muscle relaxers. Patient states that pain is just getting unbearable she is in constant pain the pain radiates to her right shoulder. She is doing weakness. Patient denies any recent injuries. Patient states she has not had a controlled substance prescribed to her in the past month. - Related Data Home Medications Medication Instructions Recorded Confirmed Naproxen 500 mg PO BID 04/17/17 11/04/17 Inulin/Chromium Picolinate [Fiber 1 each PO DAILY 11/03/17 11/04/17 Gummies Chew] Previous Rx's Medication Instructions Recorded Ibuprofen [Motrin] 600 mg PO Q8HR PRN #30 tab 04/17/17 HYDROcodone/APAP 7.5-325MG [[place] 1 each PO Q4H PRN #30 tab 11/04/17 7.5-325] Hydrocodone/Acetaminophen [[place] 1 tab PO Q6HR PRN #15 tab 11/06/17 5-325] bisacodyL [Dulcolax] 5 mg PO DAILY #20 tablet. 11/06/17 HYDROcodone/APAP 7.5-325MG [[place] 1 each PO Q4H PRN #20 tab 11/22/17 7.5-325] HYDROcodone/APAP 5-325MG [[place] 1 tab PO Q6HR PRN 3 Days #20 tab 06/17/24 5-325] tiZANidine [Zanaflex] 4 mg PO Q8HR PRN #30 tab 06/17/24 Allergies Allergy/AdvReac Type Severity Reaction Status Date / Time metronidazole [From Flagyl] Allergy Rash/Hives Verified 11/06/17 14:03 Review of Systems ROS Statement: Those systems with pertinent positive or pertinent negative responses have been documented in the HPI. ROS Other: All systems not noted in ROS Statement are negative. Past Medical History Past Medical History: No Reported History Additional Past Medical History / Comment(s): heart murmur, umbilical hernia, kidney stones and degenerative disc disease. History of Any Multi-Drug Resistant Organisms: None Reported Past Surgical History: Hernia Repair, Tubal Ligation Additional Past Surgical History / Comment(s): 09/2014 Past Anesthesia/Blood Transfusion Reactions: No Reported Reaction Past Psychological History: No Psychological Hx Reported Smoking Status: Current every day smoker Past Alcohol Use History: None Reported Past Drug Use History: None Reported General Exam - General Exam Comments Initial Comments: Physical Exam GENERAL: Patient is quite thin and frail she is crying in pain HENT: Normocephalic, Atraumatic. EYES: PERRL, EOMI PULMONARY: Unlabored respirations. CARDIOVASCULAR: RRR Warm and well perfused extremities ABDOMEN: Non-distended SKIN: No rashes or bruising : Deferred NEUROLOGIC: Alert and oriented Normal speech MUSCULOSKELETAL: Scoliotic curve of spine, exaggerated thoracic kyphosis no obvious step-offs of the spine Tenderness and hypertonicity of the muscles in the right shoulder and neck area including the trapezius PSYCHIATRIC: No SI/HI Limitations: no limitations Course Vital Signs 06/17/24 06/17/24 03:01 05:40 Temperature 98.1 F Pulse Rate 83 61 Respiratory 18 18 Rate Blood Pressure 121/73 111/70 O2 Sat by Pulse 98 100 Oximetry Medical Decision Making - Medical Decision Making Was pt. sent in by a medical professional or institution (, PA, BRAND MARKETING COORDINATOR, urgent care, hospital, or assisted...) When possible be specific @ -No Did you speak to anyone other than the patient for history (EMS, parent, family, police, friend...)? What history was obtained from this source @ -No Did you review nursing and triage notes (agree or disagree)? Why? @ -I reviewed and agree with nursing and triage notes Were old charts reviewed (outside hosp., previous admission, EMS record, old EKG, old radiological studies, urgent care reports/EKG's, assisted records)? Report findings @ -Old charts were reviewed but recent imaging was not available in our system Differential Diagnosis (chest pain, altered mental status, abdominal pain women, abdominal pain men, vaginal bleeding, weakness, fever, dyspnea, syncope, headache, dizziness, GI bleed, back pain, seizure, CVA, palpatations, mental health)? @ -Not applicable EKG interpreted by me (3pts min.). @ -As above X-rays interpreted by me (1pt min.). @ -None done CT interpreted by me (1pt min.). @ -None done U/S interpreted by me (1pt. min.). @ -None done What testing was considered but not performed or refused? (CT, X-rays, U/S, labs)? Why? @ -None What meds were considered but not given or refused? Why? @ -None Did you discuss the management of the patient with other professionals (professionals i.e. , PA, BRAND MARKETING COORDINATOR, lab, RT, psych nurse, social studies teacher, legal transcriptionist, teacher, mortgage loan officer, immigration case worker)? Give summary @ -No Was smoking cessation discussed for >3mins.? @ -No Was critical care preformed (if so, how long)? @ -No Were there social determinants of health that impacted care today? How? (Homelessness, low income, unemployed, alcoholism, drug addiction, transportation, low edu. Level, literacy, decrease access to med. care, [facility], rehab)? @ -No Was there de-escalation of care discussed even if they declined (Discuss DNR or withdrawal of care, Hospice)? DNR status @ -No What co-morbidities impacted this encounter? (DM, HTN, Smoking, COPD, CAD, Cancer, CVA, ARF, Chemo, Hep., AIDS, mental health diagnosis, sleep apnea, morbid obesity)? @ -None Was patient admitted / discharged? Hospital course, mention meds given and route, prescriptions, significant lab abnormalities, going to OR and other pertinent info. @ -Discharged Was seen and evaluated, history is obtained from the patient. Patient with chronic pain awaiting surgery in 2 weeks. Patient with no focal neurologic deficits, only symptom at this time is pain. Will treat patient with anti- inflammatories, IM morphine and Norflex here in the ER. Discharged with short course of Diana as well as Zanaflex to help manage the pain until surgery. Undiagnosed new problem with uncertain prognosis? @ -No Drug Therapy requiring intensive monitoring for toxicity (Heparin, Nitro, Insulin, Cardizem)? @ -No Were any procedures done? @ -No Diagnosis/symptom? @ -Chronic neck pain Acute, or Chronic, or Acute on Chronic? @ -Default Uncomplicated (without systemic symptoms) or Complicated (systemic symptoms)? @ -Default Side effects of treatment? @ -No Exacerbation, Progression, or Severe Exacerbation? @ -No Poses a threat to life or bodily function? How? (Chest pain, [place], [place], pneumonia, PE, COPD, DKA, ARF, appy, cholecystitis, CVA, Diverticulitis, Homicidal, Suicidal, threat to staff... and all critical care pts) @ -No Disposition Clinical Impression: Other and unspecified disc disorder of cervical region, Cervical radiculopathy Disposition: HOME SELF-CARE Condition: Stable Prescriptions: HYDROcodone/APAP 5-325MG [Diana 5-325] 1 tab PO Q6HR PRN 3 Days #20 tab PRN Reason: Pain tiZANidine [Zanaflex] 4 mg PO Q8HR PRN #30 tab PRN Reason: Muscle Spasm Is patient prescribed a controlled substance at d/c from ED?: Yes If opioid is for acute pain is fill amount 7 days or less?: Yes Referrals: None,Stated [Primary Care Provider] - 1-2 days
[2024-06-17] MEDS: KETOROLAC 15 MG/ML 1 ML VIAL IM STA (04:10)
[2024-06-17] MEDS: MORPHINE SULFATE 4 MG/ML SYRINGE IM STA (04:11)
[2024-06-17] MEDS: ORPHENADRINE 30 MG/ML 2 ML VIAL IM STA (04:11)
[2024-06-17 05:48] VITALS: BP 111/70; PULSE 61
== END 2024-06-17 05:48 | disposition home or self-care (01) ==
LOC: EC 02:54
DX: M50.80 Other cervical disc disorders, unspecified cervical region (principal); M54.12 Radiculopathy, cervical region; F17.200 Nicotine dependence, unspecified, uncomplicated; Z88.1 Allergy status to other antibiotic agents
CPT/HCPCS: 99283; 96372 ×3; J2270; J2360; J1885